=== PATIENT | male | born 1995 | race African-American/Black ===

== ENCOUNTER 2019-01-02 11:16 | Inpatient (IN) | payer OTHER ==
[2019-01-02] MEDS ORDERED: MAG HYDROX/AL HYDROX/SIMETH 30 ML UNIT-DOSE CUP PO ONE (11:37)
[2019-01-02] MEDS ORDERED: FAMOTIDINE 20 MG TABLET PO ONE (11:37)
[2019-01-02] MEDS ORDERED: ONDANSETRON *ODT* 4 MG TABLET SL ONE (11:46)
[2019-01-02] MEDS ORDERED: ONDANSETRON *ODT* 4 MG TABLET ONE (11:52)
[2019-01-02] MEDS ORDERED: MAG HYDROX/AL HYDROX/SIMETH 30 ML UNIT-DOSE CUP ONE (11:52)
[2019-01-02] MEDS ORDERED: FAMOTIDINE 20 MG TABLET ONE (11:55)
[2019-01-02 12:09] LABS: BASO % 0.5 % (0-2.0); EOS % 1.8 % (0-4.5); HEMATOCRIT 43.4 % (35.4-49); HEMOGLOBIN 13.9 GM/dL (11.7-16.9); LYMPH % 23.2 % (8-40); MCH 26.2 pg (25.7-33.7); MCHC 32.1 g/dl (32.0-35.9); MEAN CELL VOLUME 81.7 fl (80-96); MONO % 6.4 % (3.8-10.2); NEUT % 68.1 % (42.8-82.8); PLATELET COUNT 373 K/MM3 (134-434); RBC 5.31 M/mm3 (4.00-5.60); WHITE BLOOD COUNT 9.2 K/mm3 (4.0-10.0)
--- NOTE | 2019-01-02 12:12 | PDOC ---
History of Present Illness - General Chief Complaint: Pain, Acute Stated Complaint: ABD PAIN/ VOMTING Time Seen by Provider: 01/02/19 11:33 History Source: Patient Exam Limitations: No Limitations - History of Present Illness Initial Comments: 01/02/19 12:09 CHIEF COMPLAINT: Abdominal pain HISTORY OF PRESENT ILLNESS: This is a 23-year-old male with a history of prediabetes who presents complaining of 2 days of upper abdominal pain. He reports that the pain was gradual in onset, but has since been constant. It is burning in character. It does not seem to be affected by eating. It was unrelieved by 1 dose of Pepto-Bismol. He had 3 episodes of vomiting last night. He has never had pain like this before. He has been having bowel movements, although he reports less volume than normal. He denies any recent travel or known sick contacts. Alcohol: Occasional Smoking: Social Illicits: None PCP: None REVIEW OF SYSTEMS: GENERAL/CONSTITUTIONAL: No fever or chills. No weakness. No weight change. HEAD, EYES, EARS, NOSE AND THROAT: No change in vision. No ear pain or discharge. No sore throat. CARDIOVASCULAR: No chest pain or palpitations. RESPIRATORY: No cough, wheezing, or shortness of breath. GASTROINTESTINAL: See HPI. GENITOURINARY: No dysuria, frequency, or change in urination. MUSCULOSKELETAL: No joint or muscle swelling or pain. No neck or back pain. SKIN: No rash or easy bruising. NEUROLOGIC: No headache, vertigo, loss of consciousness, or loss of sensation. PSYCHIATRIC: No depression or anxiety. ENDOCRINE: No increased thirst. No abnormal weight change. HEMATOLOGIC/LYMPHATIC: No anemia, easy bleeding, or history of blood clots. ALLERGIC/IMMUNOLOGIC: No hives or skin allergy. No latex allergy. PHYSICAL EXAM: GENERAL: The patient is awake, alert, and fully oriented, in no acute distress. HEAD: Normal with no signs of trauma. ENT: Pupils equal, round and reactive to light, extraocular movements intact, sclera anicteric, conjunctiva clear. Neck supple. LUNGS: Clear to auscultation bilaterally. Normal excursion. No respiratory distress or use of accessory muscles. CV: RRR, S1/S2, no MRG. Cap refill < 2 sec. ABDOMEN: Soft, obese, tender to palpation in epigastrium, less so in right upper quadrant. No guarding or rebound tenderness. Bowel sounds normoactive all 4 quadrants. No periumbilical or flank bruising. EXTREMITIES: Normal range of motion, no edema. NEUROLOGICAL: Normal speech, normal gait. CN II-XII grossly intact. PSYCH: Normal mood, normal affect. SKIN: Warm, dry, normal turgor, no rashes or lesions noted. Past History - Past Medical History Allergies/Adverse Reactions: Allergies Allergy/AdvReac Type Severity Reaction Status Date / Time No Known Allergies Allergy Verified 01/02/19 11:20 Home Medications: Ambulatory Orders NK [No Known Home Medication] 01/02/19 COPD: No - Psycho Social/Smoking Cessation Hx Smoking History: Never smoked Have you smoked in the past 12 months: No Information on smoking cessation initiated: No Hx Alcohol Use: No Drug/Substance Use Hx: No *Physical Exam - Vital Signs Last Vital Signs Temp Pulse Resp BP Pulse Ox 98.6 F 84 20 123/64 98 01/02/19 11:18 01/02/19 11:18 01/02/19 11:18 01/02/19 11:18 01/02/19 11:18 ED Treatment Course - LABORATORY CBC & Chemistry Diagram: 01/02/19 11:43 01/02/19 11:43 - Medications Given in the ED: ED Medications Discontinued Medications Generic Name Dose Route Start Last Admin Trade Name Rickq PRN Reason Stop Dose Admin Al Hydroxide/Mg Hydroxide 30 ml 01/02/19 11:37 01/02/19 11:59 Mylanta Oral Suspension - PO 01/02/19 11:38 30 ml ONCE ONE Administration Famotidine 20 mg 01/02/19 11:37 01/02/19 11:59 Pepcid - PO 01/02/19 11:38 20 mg ONCE ONE Administration Ondansetron HCl 4 mg 01/02/19 11:46 01/02/19 11:59 Zofran Odt - SL 01/02/19 11:47 4 mg ONCE ONE Administration Medical Decision Making - Medical Decision Making 01/02/19 12:11 A/P: 23-year-old male with epigastric pain. Differential includes but is not limited to: Gastritis, viral gastroenteritis, less likely pancreatitis or cholecystitis based on exam. -Labs including CBC, CMP, lipase -Trial of p.o. Pepcid, Zofran, Maalox -Reevaluate 01/02/19 12:42 Lipase 1225 noted. Will send for gallbladder ultrasound. Patient made NPO. Pain reassessed and not improved. Will give hydromorphone 0.5 mg IVP. Lactated Ringer's 1 L bolus ordered. 01/02/19 14:46 Patient re-assessed; states pain has not really improved, but wants to defer further analgesia. U/s reviewed and negative for gallstones/cholecystitis. CT deferred at this time as patient is not septic/ill-appearing. Will admit for further management of pancreatitis. Discharge - Discharge Information Problems reviewed: Yes Clinical Impression/Diagnosis: Acute pancreatitis Condition: Stable - Admission Yes - Follow up/Referral - Patient Discharge Instructions - Post Discharge Activity
[2019-01-02 12:36] LABS: BILIRUBIN,TOTAL 0.2 mg/dL (0.2-1); BLOOD UREA NITROGEN 10.8 mg/dL (7-18); CALCIUM 9.5 mg/dL (8.5-10.1); CREATININE 0.9 mg/dL (0.55-1.3); POTASSIUM 4.5 mmol/L (3.5-5.1)
[2019-01-02] MEDS ORDERED: HYDROmorphone HCL CARPU-JECT 2 MG/1 ML DISP.SYRIN IVPUSH ONE (12:39)
[2019-01-02] MEDS ORDERED: SODIUM CHLORIDE 1,000 ML IV STA (12:40)
[2019-01-02] MEDS ORDERED: LACTATED RINGERS SOLUTION 1000 ML INFUS.BAG IV ONE (12:41)
[2019-01-02] MEDS ORDERED: HYDROmorphone HCl 2 MG/ML VIAL ONE (12:45)
[2019-01-02] MEDS ORDERED: LACTATED RINGERS SOLUTION 1,000 ML/1,000 ML INFUS.BAG IV SCH (14:45)
[2019-01-02] MEDS ORDERED: ENOXAPARIN NA (PORCINE) 40 MG/0.4 ML DISP.SYRIN SQ ONE (17:00)
[2019-01-02] MEDS ORDERED: ACETAMINOPHEN INJECTION 100 ML IVPB ONE (17:09)
[2019-01-02] MEDS: ENOXAPARIN NA (PORCINE) 40 MG/0.4 ML DISP.SYRIN SQ SCH (17:14)
[2019-01-02] MEDS: ACETAMINOPHEN 1000 MG/100 ML VIAL (NON FORMULARY) IVPB PRN ×2 (17:14→23:54)
[2019-01-02 18:24] LABS: CHOLESTEROL 157 mg/dL (50-200); HDL CHOLESTEROL 42 mg/dL (40-60); LDL CHOLESTEROL (ONLY SJRH) 102 mg/dL (5-100); TRIGLYCERIDES 83 mg/dL (0-150)
[2019-01-02] MEDS: SODIUM CHLORIDE 1,000 ML IV SCH ×2 (18:38→20:30)
--- NOTE | 2019-01-02 18:51 | HP ---
CHIEF COMPLAINT: Abdominal Pain PCP: None HISTORY OF PRESENT ILLNESS: 23 M with no significant PMH who presents with 3 days of abdominal pain in the epigastric region that radiates to the right upper quadrant. Pain worsens with movement and exertion. Patient has found no relief with antacids, peptobismol, avoiding food, and rest. Had one episode of nonbloody, non bilious vomiting the day before admission, and one episode of diarrhea the night before admission. Patient had regular bowel movement the morning of admission. Patient denies any nausea, anorexia, hematochezia. No change in diet, and admits to having a fatty and oily diet. No one at home is having similar symptoms. Patient did not have fever, chills, or recent illnesses. ER course was notable for: (1)0.5 mg of dilaudid was given, Patient was given bolus of LR (2)Lipase was 1225 (3)Right U/S was completed: No gallstones, no fluid seen. Recent Travel: Denies PAST MEDICAL HISTORY: Denies Family Medical History: Father's side has HTN, nothing on Mother's side. PAST SURGICAL HISTORY: Denies Social History: Smoking: Occasional cigarettes. Alcohol: Occasional drink, < 1 time a month Drugs: Marijuana twice a week for 1 year Allergies No Known Allergies Allergy (Verified 01/02/19 11:20) HOME MEDICATIONS: Home Medications Medication Instructions Recorded NK [No Known Home Medication] 01/02/19 REVIEW OF SYSTEMS CONSTITUTIONAL: Increase in weight over past year, unable to quantify Absent: fever, chills, diaphoresis, generalized weakness, malaise, loss of appetite, HEENT: Absent: eye pain, visual changes CARDIOVASCULAR: Absent: chest pain, peripheral edema RESPIRATORY: Absent: shortness of breath, dyspnea with exertion, GASTROINTESTINAL: abdominal pain Absent: abdominal distension, nausea, vomiting, diarrhea, constipation, melena , hematochezia GENITOURINARY: Absent: dysuria, frequency, urgency, hesitancy, hematuria MUSCULOSKELETAL: back pain for the past week Absent: myalgia, arthralgia, joint swelling, neck pain HEMATOLOGIC/IMMUNOLOGIC: Absent: easy bleeding, easy bruising, lymphadenopathy, frequent infections ENDOCRINE: Absent: heat intolerance, cold intolerance NEUROLOGIC: Absent: headache, focal weakness or paresthesias, dizziness, unsteady gait, seizure, mental status changes, bladder or bowel incontinence PSYCHIATRIC: Absent: anxiety, depression, suicidal or homicidal ideation, hallucinations. PHYSICAL EXAMINATION Vital Signs - 24 hr 01/02/19 01/02/19 01/02/19 11:18 17:01 18:20 Temperature 98.6 F 98.5 F 98.6 F Pulse Rate 84 77 Pulse Rate [ 88 Right Radial] Respiratory 20 19 18 Rate Blood Pressure 123/64 132/62 Blood Pressure 126/78 [Left Arm] O2 Sat by Pulse 98 100 Oximetry (%) 01/02/19 18:32 Temperature Pulse Rate Pulse Rate [ Right Radial] Respiratory Rate Blood Pressure Blood Pressure [Left Arm] O2 Sat by Pulse 96 Oximetry (%) GENERAL: Awake, alert, and fully oriented, in no acute distress. HEAD: Normal with no signs of trauma. EYES: Pupils equal, round and reactive to light, extraocular movements intact, sclera anicteric, conjunctiva clear. EARS, NOSE, THROAT: Ears normal, nares patent, oropharynx clear without exudates. Moist mucous membranes. LUNGS: Breath sounds difficult to appreciate. Equal, air entry bilaterally HEART: Regular rate and rhythm, normal S1 and S2 without murmur, rub or gallop. ABDOMEN:Tender in the RUQ, positive cohen sign, no rebound tenderness. Normoactive bowel sounds. MUSCULOSKELETAL: Normal range of motion at all joints. No bony deformities or tenderness. UPPER EXTREMITIES: 2+ pulses, warm, well-perfused. No cyanosis. No clubbing. No peripheral edema. LOWER EXTREMITIES: 2+ pulses, warm, well-perfused. No calf tenderness. No peripheral edema. NEUROLOGICAL: Cranial nerves II-XII intact. Normal speech. Laboratory Results - last 24 hr 01/02/19 01/02/19 01/02/19 11:43 11:43 11:43 WBC 9.2 RBC 5.31 Hgb 13.9 Hct 43.4 MCV 81.7 MCH 26.2 MCHC 32.1 RDW 14.0 Plt Count 373 MPV 8.0 Absolute Neuts (auto) 6.2 Neutrophils % 68.1 Lymphocytes % 23.2 Monocytes % 6.4 Eosinophils % 1.8 Basophils % 0.5 Nucleated RBC % 0 Sodium 134 L Potassium 4.5 Chloride 100 Carbon Dioxide 29 Anion Gap 5 L BUN 10.8 Creatinine 0.9 Est GFR (CKD-EPI)AfAm 140.02 Est GFR (CKD-EPI)NonAf 120.81 Random Glucose 156 H Calcium 9.5 Total Bilirubin 0.2 AST 18 ALT 29 Alkaline Phosphatase 60 Total Protein 8.0 Albumin 4.0 Triglycerides Cholesterol Total LDL Cholesterol HDL Cholesterol Lipase 1225 H 01/02/19 01/02/19 16:57 17:00 WBC RBC Hgb Hct MCV MCH MCHC RDW Plt Count MPV Absolute Neuts (auto) Neutrophils % Lymphocytes % Monocytes % Eosinophils % Basophils % Nucleated RBC % Sodium Potassium Chloride Carbon Dioxide Anion Gap BUN Creatinine Est GFR (CKD-EPI)AfAm Est GFR (CKD-EPI)NonAf Random Glucose Calcium Total Bilirubin AST ALT Alkaline Phosphatase Total Protein Albumin Triglycerides Cancelled 83 Cholesterol Cancelled 157 Total LDL Cholesterol Cancelled 102 H HDL Cholesterol Cancelled 42 Lipase ASSESSMENT/PLAN: 23M without significant PMH who presents with pancreatitis 1)Pancreatitis -Patient says he is prediabetic as per labs his mom sent off from her medical office job. May be due to marijuana use. Unlikely to be due to alcohol intake, may be due to triglycerides as patient has BMI of 54. -NPO, will adjust diet in the morning -NS @ 125 ml/hr -Protonix 40 mg IV Qdaily -Tylenol 1000 mg IV Q8H PRN for pain 1-7 -Morphine 3mg Q4H PRN for pain 7-10 -F/U Lipid Panel -F/U HbA1c -patient will have MRCP as outpatient pending testing in hospital DVT: Lovenox 40 mg SQ Daily F: NS @125 ml/hr E: Monitor BMP N: NPO Visit type - Emergency Visit Emergency Visit: Yes ED Registration Date: 01/02/19 Care time: The patient presented to the Emergency Department on the above date and was hospitalized for further evaluation of their emergent condition. - New Patient This patient is new to me today: Yes Date on this admission: 01/02/19 - Critical Care Critical Care patient: No ATTENDING PHYSICIAN STATEMENT I saw and evaluated the patient. I reviewed the resident's note and discussed the case with the resident. I agree with the resident's findings and plan as documented. SUBJECTIVE: OBJECTIVE: ASSESSMENT AND PLAN:
--- NOTE | 2019-01-02 19:40 | PN ---
Teaching Attending Note Name of Resident: Hussein Mayfield ATTENDING PHYSICIAN STATEMENT I saw and evaluated the patient. I reviewed the resident's note and discussed the case with the resident. I agree with the resident's findings and plan as documented. SUBJECTIVE: CC: abd pain HPI : patietn developed abd pain suddelnly. had one episode of vomiting at home. took laxatives today and developed diarrhea. no hematochezia. no alcohol or drugs but smoked marijuana and quit 2 weeks ago. no diuretic use. snores at night OBJECTIVE: NAD, AAOx3. HEENT: MMM, no facial droop, EOMI, round equal pupils, reactive to light . No LAP inneck CV: RRR Lunsg: CATB Ext : No edema or erythema Abd: soft,ND, TTP in spigastric and RUQ. nl BS . neg [facility] Neuro: no facial droop, EOMI, round equal pupils, reactive to light. strength 5/ 5 in upper and lower extremities proximally and distally ASSESSMENT AND PLAN: 23 y/o man with h/o prediabetes who presented with abd paina dn was found to have acute pancreatitis 1- Acute pancreatitis : could be due to Marijuana use. no alcoho, gall stones. Nl TG. no diuretics use. - IVF - pain control - NPO for now - clears in am . - check A1c - might need an out pt MRCP to evaluate pancreas 2-Obesity : counseled . weight loss, and sleep study recommended DVT PX : lovenox
[2019-01-02] MEDS: morphine SULFATE 4 MG/ML VIAL IVPUSH PRN (20:30)
[2019-01-03] MEDS: morphine SULFATE 4 MG/ML VIAL IVPUSH PRN ×2 (03:35→21:31)
[2019-01-03] MEDS: SODIUM CHLORIDE 1,000 ML IV SCH ×3 (05:52→23:59)
[2019-01-03 08:32] LABS: BASO % 0.3 % (0-2.0); HEMATOCRIT 38.9 % (35.4-49); HEMOGLOBIN 12.7 GM/dL (11.7-16.9); LYMPH % 28.6 % (8-40); MCH 26.4 pg (25.7-33.7); MCHC 32.6 g/dl (32.0-35.9); MEAN CELL VOLUME 81.1 fl (80-96); MEAN PLT VOLUME 7.9 fl (7.5-11.1); MONO % 7.9 % (3.8-10.2); NEUT % 61.2 % (42.8-82.8); PLATELET COUNT 330 K/MM3 (134-434); RDW 14.1 % (11.9-15.9); WHITE BLOOD COUNT 6.5 K/mm3 (4.0-10.0)
[2019-01-03] MEDS: ACETAMINOPHEN 1000 MG/100 ML VIAL (NON FORMULARY) IVPB PRN ×2 (08:53→17:57)
[2019-01-03 08:55] LABS: ALBUMIN 3.6 g/dl (3.4-5.0); BILIRUBIN,TOTAL 0.5 mg/dL (0.2-1); BLOOD UREA NITROGEN 10.1 mg/dL (7-18); CALCIUM 8.9 mg/dL (8.5-10.1); CREATININE 0.8 mg/dL (0.55-1.3); POTASSIUM 4.1 mmol/L (3.5-5.1); TOT PROT 6.8 g/dl (6.4-8.2)
[2019-01-03] MEDS: PANTOPRAZOLE SODIUM 40 MG VIAL IVPUSH SCH (09:00)
[2019-01-03] MEDS: ENOXAPARIN NA (PORCINE) 40 MG/0.4 ML DISP.SYRIN SQ SCH (09:00)
--- NOTE | 2019-01-03 14:37 | PN ---
Physical Exam: SUBJECTIVE: Patient seen and examined in the morning. No acute events overnight. Abdominal pain persists. No complaints of shortness of breath, chest pain, nausea, vomiting, diarrhea. OBJECTIVE: Vital Signs Period Temp Pulse Resp BP Sys/Mathew Pulse Ox Last 24 Hr 97.6 F-98.7 F 77-88 17-20 120-161/51-80 96-100 GENERAL: Awake, alert, and fully oriented, in no acute distress. HEAD: Normal with no signs of trauma. EYES: Pupils equal, round and reactive to light, extraocular movements intact, sclera anicteric, conjunctiva clear. EARS, NOSE, THROAT: Ears normal, nares patent, oropharynx clear without exudates. Moist mucous membranes. LUNGS: Breath sounds difficult to appreciate. Equal, air entry bilaterally HEART: Regular rate and rhythm, normal S1 and S2 without murmur, rub or gallop. ABDOMEN:Tender in the RUQ, no rebound tenderness. Normoactive bowel sounds. MUSCULOSKELETAL: Normal range of motion at all joints. No bony deformities or tenderness. UPPER EXTREMITIES: 2+ pulses, warm, well-perfused. No cyanosis. No clubbing. No peripheral edema. LOWER EXTREMITIES: 2+ pulses, warm, well-perfused. No calf tenderness. No peripheral edema. NEUROLOGICAL: Cranial nerves II-XII intact. Normal speech. Laboratory Results - last 24 hr CBC, BMP 01/03/19 07:35 01/03/19 07:35 Active Medications Generic Name Dose Route Start Last Admin Trade Name Freq PRN Reason Stop Dose Admin Acetaminophen 1,000 mg 01/02/19 16:05 01/03/19 08:53 Ofirmev Injection - IVPB 1,000 mg Q8H PRN Administration Pain 1-7 Enoxaparin Sodium 40 mg 01/02/19 16:15 01/03/19 09:00 Lovenox - SQ 40 mg DAILY PATRICIA Administration Sodium Chloride 1,000 mls @ 125 mls/hr 01/02/19 16:00 01/03/19 05:52 Normal Saline - IV 125 mls/hr ASDIR PATRICIA Administration Morphine Sulfate 3 mg 01/02/19 15:56 01/03/19 03:35 Morphine Sulfate IVPUSH 3 mg Q4H PRN Administration Pain Level 8 - 10 Pantoprazole Sodium 40 mg 01/03/19 10:00 01/03/19 09:00 Protonix Iv IVPUSH 40 mg DAILY PATRICIA Administration ASSESSMENT/PLAN: 23M without significant PMH who presents with pancreatitis 1)Pancreatitis -Patient says he is prediabetic as per labs his mom sent off from her medical office job. May be due to marijuana use. Unlikely to be due to alcohol intake, may be due to triglycerides as patient has BMI of 54. -Clear liquids diet, will adjust diet as abdominal pain progresses. -NS @ 125 ml/hr -Protonix 40 mg IV Qdaily -Tylenol 1000 mg IV Q8H PRN for pain 1-7 -Morphine 3mg Q4H PRN for pain 7-10 -F/U Lipid Panel -F/U HbA1c -patient will have MRCP as outpatient pending testing in hospital 2) Diabetes -Hba1c of 6.7 -Starting metformin ad PCP follow up as outpatient. DVT: Lovenox 40 mg SQ Daily F: NS @125 ml/hr E: Monitor BMP N: NPO Visit type - Emergency Visit Emergency Visit: Yes ED Registration Date: 01/02/19 Care time: The patient presented to the Emergency Department on the above date and was hospitalized for further evaluation of their emergent condition. - New Patient This patient is new to me today: No - Critical Care Critical Care patient: No ATTENDING PHYSICIAN STATEMENT I saw and evaluated the patient. I reviewed the resident's note and discussed the case with the resident. I agree with the resident's findings and plan as documented. SUBJECTIVE: OBJECTIVE: ASSESSMENT AND PLAN:
--- NOTE | 2019-01-03 18:33 | PN ---
Teaching Attending Note Name of Resident: Hussein Mayfield ATTENDING PHYSICIAN STATEMENT I saw and evaluated the patient. I reviewed the resident's note and discussed the case with the resident. I agree with the resident's findings and plan as documented. SUBJECTIVE: Seen at 11 am No fever or chills. Abd pain is better . feels hungry OBJECTIVE: NAD, AAOx3. HEENT: MMM. CV: RRR Lungs: CATB Ext: No edema or erythema Abd: soft,ND, TTP in RUQ. nl BS . Obese ASSESSMENT AND PLAN: 23 y/o man with h/o prediabetes who presented with abd paina dn was found to have acute pancreatitis 1- Acute pancreatitis: could be due to Marijuana use. - cont IVF - clear liquid diet - pain control - might need an out pt MRCP to evaluate pancreas [id number]: will start metformin as out pt Dietitian consult 3- Obesity: dietitian consult. out pt referral for bariatric sx DVT PX : lovenox
[2019-01-04] MEDS: morphine SULFATE 4 MG/ML VIAL IVPUSH PRN ×2 (02:34→06:11)
[2019-01-04] MEDS: SODIUM CHLORIDE 1,000 ML IV SCH (09:03)
[2019-01-04 09:20] LABS: BASO % 0.3 % (0-2.0); EOS % 2.3 % (0-4.5); HEMATOCRIT 40.5 % (35.4-49); HEMOGLOBIN 13.1 GM/dL (11.7-16.9); LYMPH % 27.4 % (8-40); MCH 26.3 pg (25.7-33.7); MCHC 32.4 g/dl (32.0-35.9); MEAN CELL VOLUME 81.2 fl (80-96); MEAN PLT VOLUME 7.8 fl (7.5-11.1); MONO % 7.1 % (3.8-10.2); NEUT % 62.9 % (42.8-82.8); PLATELET COUNT 329 K/MM3 (134-434); RBC 4.99 M/mm3 (4.00-5.60); RDW 13.6 % (11.9-15.9)
[2019-01-04] MEDS: ENOXAPARIN NA (PORCINE) 40 MG/0.4 ML DISP.SYRIN SQ SCH (09:57)
[2019-01-04] MEDS: PANTOPRAZOLE SODIUM 40 MG VIAL IVPUSH SCH (09:57)
[2019-01-04 09:58] LABS: BLOOD UREA NITROGEN 7.8 mg/dL (7-18); CALCIUM 9.6 mg/dL (8.5-10.1); CREATININE 0.8 mg/dL (0.55-1.3)
--- NOTE | 2019-01-04 13:23 | PN ---
Teaching Attending Note Name of Resident: Hussein Mayfield ATTENDING PHYSICIAN STATEMENT I saw and evaluated the patient. I reviewed the resident's note and discussed the case with the resident. I agree with the resident's findings and plan as documented. SUBJECTIVE: No fever or chills. abd pain is better . has no N/V . tolerated clears NAD HEENT: MMM. CV: RRR Lungs: CATB Ext: No edema or erythema Abd: soft, ND, NT. Nl BS. Obese ASSESSMENT AND PLAN: 23 y/o man with h/o prediabetes who presented with abd paina dn was found to have acute pancreatitis 1- Acute pancreatitis: could be due to Marijuana use. -regular diet today. dc IV pain meds - might need an out pt MRCP to evaluate pancreas 2- new onset Diabetes: will start metformin as out pt advised to loose weight and change life style will prescribe glucometer and ask Rn to teach him 3- Obesity: out pt referral for bariatric sx if regular diet is tolerated , then can dc home today
[2019-01-04 14:57] VITALS: BP 120/63; PULSE 99; TEMP 98.6
[2019-01-04 15:44] VITALS: BMI 53.9
--- NOTE | 2019-01-04 17:15 | DS ---
Physical Exam: SUBJECTIVE: Patient seen and examined in the morning. No acute events overnight. No complaints of chest pain,shortness of breath, abdominal pain, nausea, vomiting,diarrhea. OBJECTIVE: Vital Signs Period Temp Pulse Resp BP Sys/Mathew Pulse Ox Last 24 Hr 98.7 F 80-99 20-20 120-152/63-83 98-98 PHYSICAL EXAM GENERAL: Awake, alert, and fully oriented, in no acute distress. HEAD: Normal with no signs of trauma. EYES: Pupils equal, round and reactive to light, extraocular movements intact, sclera anicteric, conjunctiva clear. EARS, NOSE, THROAT: Ears normal, nares patent, oropharynx clear without exudates. Moist mucous membranes. LUNGS: Breath sounds difficult to appreciate. Equal, air entry bilaterally HEART: Regular rate and rhythm, normal S1 and S2 without murmur, rub or gallop. ABDOMEN: Non tender in all 4 quadrants, no rebound tenderness. Normoactive bowel sounds. MUSCULOSKELETAL: Normal range of motion at all joints. No bony deformities or tenderness. UPPER EXTREMITIES: 2+ pulses, warm, well-perfused. No cyanosis. No clubbing. No peripheral edema. LOWER EXTREMITIES: 2+ pulses, warm, well-perfused. No calf tenderness. No peripheral edema. NEUROLOGICAL: Cranial nerves II-XII intact. Normal speech. LABS Laboratory Results - last 24 hr 01/04/19 01/04/19 01/04/19 08:45 08:45 15:11 WBC 7.0 RBC 4.99 Hgb 13.1 Hct 40.5 MCV 81.2 MCH 26.3 MCHC 32.4 RDW 13.6 Plt Count 329 MPV 7.8 Absolute Neuts (auto) 4.4 Neutrophils % 62.9 Lymphocytes % 27.4 Monocytes % 7.1 Eosinophils % 2.3 Basophils % 0.3 Nucleated RBC % 0 Sodium 136 Potassium 4.0 Chloride 104 Carbon Dioxide 26 Anion Gap 6 L BUN 7.8 Creatinine 0.8 Est GFR (CKD-EPI)AfAm 146.96 Est GFR (CKD-EPI)NonAf 126.80 POC Glucometer 114 Random Glucose 184 H Calcium 9.6 HOSPITAL COURSE: Date of Admission:01/02/19 Date of Discharge: 01/04/19 23M with no significant PMH who presented with acute pancreatitis. Patient was made NPO the night of admission, and given IV fluids, Morphine 3 mg IV PRN, and 1000 mg Tylenol IV Q8H PRN. Patient was able to tolerate liquid diet during the second day of admission, and diet was advanced accordingly. On final day of admission patient was tolerating regular foods and was ruled stable for discharge. During stay in hospital patient's Hba1c was 6.7%. Patient counseled on lifestyle changes including diet and exercise, and was started on Metformin XL 500 mg PO Daily. Patient was also started on Atorvastatin 10 mg PO, due to elevation of LDL and new diagnosis of DM. Patient will follow up with Dr. Donovan for bariatric surgery counseling, and was given referral for Primary Care. Was prescribed glucometer to measure blood sugars at home. Imaging done this stay: RUQ ultrasound: Hepatomegaly with fatty infiltration vs hepatocellular disease. No gallstones or sonographic evidence of cholecystic disease. No gross free fluid in abdomen. Minutes to complete discharge: 35 Discharge Summary Problems reviewed: Yes Reason For Visit: ACUTE PANCREATITIS Condition: Improved - Instructions Diet, Activity, Other Instructions: You were admitted to the hospital because of pancreatitis. We treated you with IV fluids and pain medicine while you were here, and you are now stable for discharge. While you were here we did blood work and saw that you have Diabetes. Your HbA1c (a measure of your diabetes is 6.7%). You need to start treatment for this condition. For your diabetes please take: Metformin 500 mg, by mouth, daily. Please measure your blood sugars daily in am with the glucometer we are prescribing you for the next week Your blood work also showed that you have high cholesterol. Please take: Atorvastatin 10 mg, by mouth, nightly. Please take adjust your diet according to the advice you were given by the automation and control engineer in the hospital. Follow up with a primary care doctor within a week. Please bring a record of the blood sugar measurements from the glucometer. Follow up with Dr. Donovan for bariatric surgery. Return to the Emergency Department if you have abdominal pain, chest pain, shortness of breath, nausea, vomiting, diarrhea, or worsening of your symptoms. please do not use Marijuana Referrals: [facility] [place] [Provider Group] Nader Donovan MD [Staff Physician] - Disposition: HOME - Home Medications Comprehensive Discharge Medication List: Ambulatory Orders Atorvastatin Ca [Lipitor] 10 mg PO HS #30 tablet 01/04/19 Lancets [Lancets Thin] 1 each MC DAILY #90 each 01/04/19 Miscellaneous Medical Supply [Glucometer Device] 1 each .ROUTE ASDIR #1 kit Miscellaneous Medical Supply [Glucometer Test Strips #50] 1 each .ROUTE ASDIR # 1 box 01/04/19 metFORMIN HCL [Metformin HCl] 500 mg PO DAILY #30 tablet 01/04/19 metFORMIN XR [Glucophage Xr -] 500 mg PO DAILY@0700 #30 tab.sr.24h 01/04/19 This patient is new to me today: No Emergency Visit: Yes ED Registration Date: 01/02/19 Care time: The patient presented to the Emergency Department on the above date and was hospitalized for further evaluation of their emergent condition. Critical Care patient: No - Discharge Referral Referred to [facility] No ATTENDING PHYSICIAN STATEMENT I saw and evaluated the patient. I reviewed the resident's note and discussed the case with the resident. I agree with the resident's findings and plan as documented. SUBJECTIVE: OBJECTIVE: ASSESSMENT AND PLAN:
--- NOTE | 2019-01-05 20:30 | EKG ---
Test Reason : Blood Pressure : / mmHG Vent. Rate : 089 BPM Atrial Rate : 089 BPM P-R Int : 170 ms QRS Dur : 094 ms QT Int : 362 ms P-R-T Axes : 047 058 033 degrees QTc Int : 440 ms SINUS RHYTHM WITH OCCASIONAL PREMATURE VENTRICULAR COMPLEXES NONSPECIFIC T WAVE ABNORMALITY ABNORMAL ECG NO PREVIOUS ECGS AVAILABLE Confirmed by KEIRA PEDERSON MD ([id number]) on 01/05/2019 8:29:48 PM Referred By: Confirmed By:KEIRA PEDERSON MD
== END 2019-01-04 18:00 | disposition home or self-care (01) | DRG 282 ==
LOC: JER 11:16 → JERBED 15:06 → J6S 18:02
PROVIDERS: ADMIT Internal Medicine; ATTEND Internal Medicine
DX: K85.90 Acute pancreatitis without necrosis or infection, unspecified (principal); E11.9 Type 2 diabetes mellitus without complications; E66.9 Obesity, unspecified; Z68.43 Body mass index [BMI] 50.0-59.9, adult; E78.5 Hyperlipidemia, unspecified; R16.0 Hepatomegaly, not elsewhere classified; F12.90 Cannabis use, unspecified, uncomplicated; K76.0 Fatty (change of) liver, not elsewhere classified
CPT/HCPCS: 36415; 76705-TC; 80048; 80053; 80061; 82962; 83036; 83690; 83721; 85025; 93005; 93010; 99284-25; J0131; J7030; Q0162

== ENCOUNTER 2019-08-20 14:44 | Emergency (ER) | payer OTHER ==
[2019-08-20] MEDS ORDERED: SODIUM CHLORIDE 1,000 ML IV STA (14:54)
[2019-08-20] MEDS ORDERED: ONDANSETRON 4 MG/2 ML VIAL IVPUSH ONE (14:54)
[2019-08-20 14:55] VITALS: BMI 56.7
--- NOTE | 2019-08-20 14:55 | PDOC ---
Rapid Medical Evaluation Time Seen by Provider: 08/20/19 14:49 Medical Evaluation: Allergies Allergy/AdvReac Type Severity Reaction Status Date / Time No Known Allergies Allergy Verified 08/20/19 14:48 08/20/19 14:50 Pt with LESLYEM, presents to the ER with n/v/d for two days. States he has not been taking his medication frequently. Admits to increased urination. Exam: epigastric discomfort Orders: labs, IV, meds Pt to proceed to the ER for further evaluation Discharge Disposition - Diagnosis Vomiting Qualifiers: Vomiting type: unspecified Vomiting Intractability: unspecified Nausea presence: with nausea Qualified Code(s): R11.2 - Nausea with vomiting, unspecified - Referrals - Patient Instructions - Post Discharge Activity
--- NOTE | 2019-08-20 15:49 | PDOC ---
Documentation entered by Shelly Goldstein SCRIBE, acting as scribe for Lisandro Mccain MD. Lisandro Mccain MD: This documentation has been prepared by the ana mariaeAngelita Sydney, SCRIBE, under my direction and personally reviewed by me in its entirety. I confirm that the documentation accurately reflects all work, treatment, procedures, and medical decision making performed by me. Attending Attestation - Resident Resident Name: Sven Eller - ED Attending Attestation I have performed the following: I have examined & evaluated the patient, The case was reviewed & discussed with the resident, I agree w/resident's findings & plan, Exceptions are as noted - HPI HPI: 08/20/19 15:40 Patient is a 23 year old male with a significant past medical history of NIDDM (non-compliant with medication) who presents to the ED with three days of nausea, vomiting, and diarrhea. Patient was also concerned for high blood sugar, prompting his arrival to the ED. The patient denies chest pain, shortness of breath, headache and dizziness, fever, chills. Denies dysuria, frequency, urgency and hematuria. Allergies: NKA PCP: None - Physicial Exam PE: 08/20/19 15:46 EXAMINATION CONSTITUTIONAL:AOx3, morbidly obesse; in no apparent distress HEAD: Normocephalic; atraumatic EYES: PERRL; EOM intact ENMT: External appears normal; mm-dry NECK: Supple; non-tender; no cervical lymphadenopathy CARD: Normal S1, S2; no murmurs, rubs, or gallops RESP: Normal chest excursion with respiration; breath sounds clear and equal bilaterally; no wheezes, rhonchi, or rales ABD: Soft, non-distended; non-tender; no palpable organomegaly, no palpable hernias EXT: Normal ROM in all four extremities; non-tender to palpation; distal pulses intact SKIN: Warm, dry, no rash NEURO: No focal neurological deficiencies. - Medical Decision Making 08/20/19 15:47 Patient is a morbidly obese 23-year-old male with history of diabetes and hypertension (noncompliant with his medication regimen who presents with persistent nausea, nonbloody nonbilious vomiting and diarrhea. In the ER, patient was noted to be tachycardic and hypertensive with dry mucous membranes. Abdomen is soft and nontender and there are no focal neurological deficits. Will hydrate, will administer antiemetics. Will reassess. Likely discharge with hypoglycemics and antihypertensives with outpatient follow-up. Discharge - Discharge Information Problems reviewed: Yes Clinical Impression/Diagnosis: Vomiting Qualifiers: Vomiting type: unspecified Vomiting Intractability: unspecified Nausea presence: with nausea Qualified Code(s): R11.2 - Nausea with vomiting, unspecified - Follow up/Referral - Patient Discharge Instructions - Post Discharge Activity
--- NOTE | 2019-08-20 15:53 | PDOC ---
History of Present Illness - General Chief Complaint: Nausea/Vomiting Stated Complaint: VOMITING Time Seen by Provider: 08/20/19 14:49 History Source: Patient Exam Limitations: No Limitations - History of Present Illness Initial Comments: 08/20/19 15:38 Sterling Serna is a 23M with PMH pancreatitis and poorly controlled NIDDM presenting with 3 days of nausea and vomiting. Has had multiple episodes of nausea and vomiting over the last 3 days without fever, chills, abdominal pain, chest pain, SOB. Poor PO intake. Denies sick contacts or spoiled food, no covid-19 exposures. Last year was diagnosed with T2DM in the setting of pancreatitis at [facility] last year, discharged home with metformin and HCTZ but was non-compliant with medications. Does not take any medications. NKDA No PSH Denies alcohol/smoking, smokes marijuana, last time last night, no prior N/V associated with use. Past History - Medical History Allergies/Adverse Reactions: Allergies Allergy/AdvReac Type Severity Reaction Status Date / Time No Known Allergies Allergy Verified 08/20/19 14:48 Home Medications: Ambulatory Orders Atorvastatin Ca [Lipitor] 10 mg PO HS #30 tablet 01/04/19 Lancets [Lancets Thin] 1 each MC DAILY #90 each 01/04/19 Miscellaneous Medical Supply [Glucometer Device] 1 each .ROUTE ASDIR #1 kit 01/04/19 Miscellaneous Medical Supply [Glucometer Test Strips #50] 1 each .ROUTE ASDIR #1 box 01/04/19 metFORMIN HCL [Metformin HCl] 500 mg PO DAILY #30 tablet 01/04/19 metFORMIN XR [Glucophage Xr -] 500 mg PO DAILY@0700 #30 tab.sr.24h 01/04/19 Hydrochlorothiazide [Hctz -] 25 mg PO DAILY #30 tablet 08/20/19 metFORMIN HCL [Metformin HCl] 500 mg PO DAILY 30 Days #30 tablet 08/20/19 COPD: No Diabetes: Yes - Immunization History Immunization Up to Date: No - Psycho-Social/Smoking History Smoking History: Never smoked Have you smoked in the past 12 months: Yes - Substance Abuse Hx (Audit-C & DAST Scrn) How often the patient has a drink containing alcohol: Never Score: In Men: 4 or > Positive; In Women: 3 or > Positive: 0 Screen Result (Pos requires Nsg. Audit-10AR): Negative In the last yr the pt used illegal drug/Rx for NonMed reason: Yes Score: Yes response is considered Positive: 1 Screen Result (Positive result requires Nsg. DAST-10): Positive Review of Systems - Review of Systems Able to Perform ROS?: Yes Constitutional: Yes: Loss of Appetite. No: Chills, Fever, Weakness HEENTM: No: Eye Pain, Blurred Vision, Double Vision Respiratory: No: Cough, Shortness of Breath, Wheezing Cardiac (ROS): No: Chest Pain, Irregular Heart Rate, Palpitations, Syncope ABD/GI: Yes: Diarrhea, Nausea, Poor Appetite, Poor Fluid Intake, Vomiting. No: Constipated : No: Symptoms Reported Musculoskeletal: No: Symptoms Reported Integumentary: No: Symptoms Reported Neurological: No: Headache, Numbness, Paresthesia, Unsteady Gait Endocrine: No: Symptoms Reported Hematologic/Lymphatic: No: Symptoms Reported All Other Systems: Reviewed and Negative *Physical Exam - Vital Signs Last Vital Signs Temp Pulse Resp BP Pulse Ox 110 H 18 176/90 H 100 08/20/19 14:49 08/20/19 14:49 08/20/19 14:49 08/20/19 14:49 - Physical Exam General Appearance: Yes: Nourished, Appropriately Dressed, Obese. No: Apparent Distress HEENT: positive: EOMI, ANISHA, Normal Voice, Symmetrical, Pharynx Normal, Hearing Grossly Normal. negative: Scleral Icterus (R), Scleral Icterus (L) Neck: positive: Trachea midline, Normal Thyroid, Supple. negative: Tender, Rigid, Lymphadenopathy (R), Lymphadenopathy (L) Respiratory/Chest: positive: Lungs Clear, Normal Breath Sounds. negative: Chest Tender, Respiratory Distress, Accessory Muscle Use, Crackles, Rales, Rhonchi, Stridor, Wheezing Cardiovascular: positive: Regular Rhythm, Regular Rate. negative: Murmur Gastrointestinal/Abdominal: positive: Normal Bowel Sounds, Flat, Soft. negative: Tender, Organomegaly, Pulsatile Mass, Distended, Guarding Musculoskeletal: positive: Normal Inspection. negative: CVA Tenderness Extremity: positive: Normal Capillary Refill, Normal Inspection, Normal Range of Motion, Pelvis Stable. negative: Tender, Pedal Edema, Swelling Integumentary: positive: Normal Color, Dry, Warm. 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 negative: Facial Droop, Numbness, Finger to Nose ED Treatment Course - LABORATORY CBC & Chemistry Diagram: 08/20/19 15:20 08/20/19 15:20 Medical Decision Making - Medical Decision Making 08/20/19 15:58 Patient is a 23M with PMH pancreatitis, poorly controlled and unmedicated NIDDM and HTN presenting with N/V for 3 days without fever or abd pain. Concerned for DKA vs. HSS given history, less concerned for pancreatitis given lack of abd pain, also considering gastroenteritis. Getting CBC, CMP, lipase, beta-hydroxybutyrate, BGM, VBG for eval DM complications, IVF and Zofran for nausea and dehydration. Labs notable for: - no AGAP - BGM 276 - UA contaminated, has ketones - lipase WNL - glucose 286 Patient does not have DKA or HHS, feels better after IVF and Zofran. Likely gastroenteritis. Will PO challenge and [place] [facility] [place] metformin and HCTZ. 08/20/19 17:04 PO challenge successful, patient feeling better and visibly appears improved, VSS, can safely discharge with PMD appt and meds. Discharge - Discharge Information Problems reviewed: Yes Clinical Impression/Diagnosis: Vomiting Qualifiers: Vomiting type: unspecified Vomiting Intractability: unspecified Nausea presence: with nausea Qualified Code(s): R11.2 - Nausea with vomiting, unspecified Diarrhea Qualifiers: Diarrhea type: unspecified type Qualified Code(s): R19.7 - Diarrhea, unspecified Condition: Improved Disposition: HOME - Additional Discharge Information Prescriptions: Hydrochlorothiazide [Hctz -] 25 mg PO DAILY #30 tablet metFORMIN HCL [Metformin HCl] 500 mg PO DAILY 30 Days #30 tablet - Follow up/Referral Referrals: Willy Russo MD [Primary Care Provider] - [facility] [place] [facility] [place] Group] - Patient Discharge Instructions Patient Printed Discharge Instructions: DI for Diabetes Type 2, DI for Vomiting -- Adult Additional Instructions: Today you were evaluated for nausea and vomiting. You felt better after we gave you IV fluids and some nausea medicine. Your symptoms are probably being caused by a stomach virus and will improve over time, please try to keep drinking enough fluids to stay hydrated. You need to follow-up with a primary care doctor for further care of your high blood pressure and diabetes. We have sent a prescription for metformin for diabetes and HCTZ for blood pressure, and you sh ould take these as prescribed each day. If you have any other new or concerning symptoms, please return to the emergency room. - Post Discharge Activity
[2019-08-20 15:54] LABS: VENOUS BASE EXCESS -2.5 mmol/L (-2-2); VENOUS O2 SATURATION 93.9 % (70-80); VENOUS PCO2 37.6 mmHg (38-52); VENOUS PH 7.386 (7.310-7.410)
[2019-08-20 15:55] LABS: BASO % 0.2 % (0-2.0); EOS % 0.5 % (0-4.5); HEMATOCRIT 44.5 % (35.4-49); HEMOGLOBIN 14.3 GM/dL (11.7-16.9); LYMPH % 5.6 % (8-40); MCH 26.4 pg (25.7-33.7); MCHC 32.2 g/dl (32.0-35.9); MEAN CELL VOLUME 81.9 fl (80-96); MEAN PLT VOLUME 9.1 fl (7.5-11.1); NEUT % 87.7 % (42.8-82.8); PLATELET COUNT 352 K/MM3 (134-434); RBC 5.44 M/mm3 (4.00-5.60); RDW 14.1 % (11.9-15.9); WHITE BLOOD COUNT 11.3 K/mm3 (4.0-10.0)
[2019-08-20 15:56] LABS: PH,URINE 5.5 (5.0-8.0); URINE APPEARANCE CLEAR; URINE BILIRUBIN NEGATIVE (NEGATIVE); URINE COLOR YELLOW; URINE KETONE 40 mg/dl (NEGATIVE); URINE NITRITE NEGATIVE (NEGATIVE); URINE PROTEIN 30 (NEGATIVE); URINE UROBILINOGEN 0.2 mg/dL (0.2-1.0)
[2019-08-20 15:57] LABS: EPI CELLS 13.2 /uL (0-25.1); HYALINE CASTS 3.2 /uL (0-3.1); URINE LEUK ESTERASE NEGATIVE (NEGATIVE); URINE RBC 8.9 /uL (0-23.9); URINE WBC 23.7 /uL (0-25.8)
[2019-08-20 16:01] LABS: INR 0.94 (0.83-1.09); PROTHROMBIN TIME (PATIENT) 11.1 SEC (9.7-13.0)
[2019-08-20 16:22] VITALS: BP 132/92; PULSE 94; TEMP 98.4
[2019-08-20 16:22] LABS: ALBUMIN 4.3 g/dl (3.4-5.0); BILIRUBIN,TOTAL 0.5 mg/dL (0.2-1); BLOOD UREA NITROGEN 10.6 mg/dL (7-18); TOT PROT 8.2 g/dl (6.4-8.2)
--- NOTE | 2019-08-21 14:07 | EKG ---
Test Reason : Blood Pressure : / mmHG Vent. Rate : 090 BPM Atrial Rate : 090 BPM P-R Int : 154 ms QRS Dur : 090 ms QT Int : 366 ms P-R-T Axes : 055 057 016 degrees QTc Int : 447 ms NORMAL SINUS RHYTHM NORMAL ECG WHEN COMPARED WITH ECG OF 02-JAN-2019 15:43, PREMATURE VENTRICULAR COMPLEXES ARE NO LONGER PRESENT Confirmed by GRISEL WITT MD ([id number]) on 08/21/2019 2:07:08 PM Referred By: Confirmed By:GRISEL WITT MD
== END 2019-08-20 17:14 | disposition home or self-care (01) ==
LOC: JER 14:44
PROC: 3E033GC Introduction of Other Therapeutic Substance into Peripheral Vein, Percutaneous Approach (ICD-10-PCS; principal; 2019-08-20)
PROC: 3E0337Z Introduction of Electrolytic and Water Balance Substance into Peripheral Vein, Percutaneous Approach (ICD-10-PCS; principal; 2019-08-20)
DX: R11.2 Nausea with vomiting, unspecified (principal); R19.7 Diarrhea, unspecified
CPT/HCPCS: 36415; 80053; 81003; 82010; 82803; 82962; 83690; 85025; 85610; 87086; 87186; 93005; 93010; 99284-25

== ENCOUNTER 2020-10-02 04:33 | Inpatient (IN) | payer OTHER ==
[2020-10-02] MEDS ORDERED: MAG HYDROX/AL HYDROX/SIMETH 30 ML UNIT-DOSE CUP PO ONE (05:27)
[2020-10-02] MEDS ORDERED: FAMOTIDINE 20 MG/50 ML IVPB 20 MG/50 ML MG IVPB ONE ×2 (05:28→05:36)
[2020-10-02] MEDS ORDERED: MORPHINE SULFATE 2 MG/ML VIAL IVPUSH ONE (05:28)
[2020-10-02] MEDS ORDERED: MORPHINE SULFATE 2 MG/ML VIAL ONE ×3 (05:36→15:42)
[2020-10-02] MEDS ORDERED: MAG HYDROX/AL HYDROX/SIMETH 30 ML UNIT-DOSE CUP ONE (05:36)
[2020-10-02] MEDS ORDERED: SODIUM CHLORIDE 0.9% 500 ML INFUS.BAG IV ONE ×2 (05:43→06:14)
[2020-10-02] MEDS ORDERED: ONDANSETRON 4 MG/2 ML VIAL IVPUSH ONE (06:06)
[2020-10-02] MEDS ORDERED: ACETAMINOPHEN 1000 MG/100 ML VIAL (NON FORMULARY) IVPB ONE (06:14)
[2020-10-02] MEDS ORDERED: ACETAMINOPHEN INJECTION 100 ML IVPB ONE (06:27)
[2020-10-02] MEDS ORDERED: ONDANSETRON 4 MG/2 ML VIAL ONE (06:28)
[2020-10-02 07:55] LABS: VENOUS BASE EXCESS -1.5 mmol/L (-2-2); VENOUS O2 SATURATION 94.3 % (70-80); VENOUS PH 7.399 (7.310-7.410)
[2020-10-02 07:59] LABS: BASO % 0.2 % (0-2.0); EOS % 0.5 % (0-4.5); HEMATOCRIT 40.9 % (35.4-49); HEMOGLOBIN 13.4 GM/dL (11.7-16.9); LYMPH % 19.1 % (8-40); MCH 26.5 pg (25.7-33.7); MCHC 32.8 g/dl (32.0-35.9); MEAN CELL VOLUME 80.8 fl (80-96); MEAN PLT VOLUME 8.8 fl (7.5-11.1); NEUT % 71.2 % (42.8-82.8); PLATELET COUNT 318 10^3/uL (134-434); RBC 5.07 M/mm3 (4.00-5.60); RDW 13.9 % (11.9-15.9); WHITE BLOOD COUNT 8.6 K/mm3 (4.0-10.0)
[2020-10-02 08:19] LABS: BLOOD UREA NITROGEN 12.4 mg/dL (7-18)
[2020-10-02 08:22] LABS: CREATININE 1.1 mg/dL (0.55-1.3)
[2020-10-02 08:22] LABS: CHOLESTEROL 182 mg/dL (50-200); TRIGLYCERIDES 316 mg/dL (0-150)
[2020-10-02 08:23] LABS: BILIRUBIN,TOTAL 0.5 mg/dL (0.2-1); TOT PROT 7.6 g/dl (6.4-8.2)
[2020-10-02 08:24] LABS: LDL CHOLESTEROL (ONLY SJRH) 109 mg/dL (5-100)
[2020-10-02 08:25] LABS: HDL CHOLESTEROL 29 mg/dL (40-60)
[2020-10-02] MEDS ORDERED: morphine CARPU-JECT 2 MG/1 ML DISP.SYRIN IVPUSH ONE ×2 (10:56→15:39)
[2020-10-02] MEDS ORDERED: INSULIN REGULAR HUMAN 100 UNITS/ML *VIAL IVPUSH ONE (14:25)
[2020-10-02] MEDS: SODIUM CHLORIDE 1,000 ML IV SCH (15:35)
[2020-10-02] MEDS ORDERED: INSULIN SLIDING SCALE (NOVOLOG) 1 VIAL SQ SCH (16:30)
[2020-10-02] MEDS ORDERED: morphine SULFATE 4 MG/ML VIAL ONE (20:12)
[2020-10-02] MEDS: morphine SULFATE 4 MG/ML VIAL IVPUSH PRN (20:29)
[2020-10-02] MEDS: FAMOTIDINE 20 MG/50 ML IVPB 20 MG/50 ML MG IVPB SCH (23:36)
[2020-10-03] MEDS: morphine SULFATE 4 MG/ML VIAL IVPUSH PRN ×4 (01:21→21:06)
[2020-10-03] MEDS: ACETAMINOPHEN 325 MG TABLET (FP) PO PRN (04:25)
[2020-10-03] MEDS: SODIUM CHLORIDE 1,000 ML IV SCH (05:42)
[2020-10-03] MEDS: FAMOTIDINE 20 MG/50 ML IVPB 20 MG/50 ML MG IVPB SCH ×2 (09:43→21:25)
[2020-10-03] MEDS ORDERED: INSULIN (LEVEMIR) 100 UNITS/ML UNITS SQ ONE (10:31)
[2020-10-03] MEDS ORDERED: ONDANSETRON 4 MG/2 ML VIAL IVPUSH PRN (11:04)
[2020-10-03] MEDS ORDERED: POLYETHYLENE GLYCOL 3350 119 GM BTL PO SCH (11:15)
[2020-10-03 11:28] LABS: BASO % 0.2 % (0-2.0); EOS % 0.2 % (0-4.5); HEMATOCRIT 40.6 % (35.4-49); HEMOGLOBIN 13.6 GM/dL (11.7-16.9); LYMPH % 9.8 % (8-40); MCH 27.3 pg (25.7-33.7); MCHC 33.5 g/dl (32.0-35.9); MEAN CELL VOLUME 81.5 fl (80-96); MEAN PLT VOLUME 8.3 fl (7.5-11.1); MONO % 9.4 % (3.8-10.2); NEUT % 80.4 % (42.8-82.8); PLATELET COUNT 300 10^3/uL (134-434); RBC 4.98 M/mm3 (4.00-5.60); RDW 13.7 % (11.9-15.9); WHITE BLOOD COUNT 9.2 K/mm3 (4.0-10.0)
[2020-10-03] MEDS: LACTATED RINGERS SOLUTION 1,000 ML/1,000 ML INFUS.BAG IV SCH ×3 (11:29→22:14)
[2020-10-03] MEDS: HYDROCHLOROTHIAZIDE 25 MG TABLET (FP) PO SCH (11:30)
[2020-10-03] MEDS: INSULIN SLIDING SCALE (NOVOLOG) 1 VIAL SQ SCH ×3 (11:37→21:22)
[2020-10-03] MEDS: POLYETHYLENE GLYCOL (HEALTHYLAX) 3350 17 GM PACKET PO SCH ×2 (11:40→21:26)
[2020-10-03 12:01] LABS: BLOOD UREA NITROGEN 4.9 mg/dL (7-18); CALCIUM 8.8 mg/dL (8.5-10.1)
[2020-10-03 12:04] LABS: CREATININE 0.7 mg/dL (0.55-1.3)
[2020-10-03] MEDS ORDERED: ACETAMINOPHEN 1000 MG/100 ML VIAL (NON FORMULARY) IVPB ONE (15:05)
[2020-10-03] MEDS ORDERED: ACETAMINOPHEN INJECTION 100 ML IVPB ONE (15:12)
[2020-10-03] MEDS: ACETAMINOPHEN 1000 MG/100 ML VIAL (NON FORMULARY) IVPB PRN (19:50)
[2020-10-03] MEDS: INSULIN (LEVEMIR) 100 UNITS/ML UNITS SQ SCH (21:21)
[2020-10-03] MEDS: ATORVASTATIN CA 10 MG TABLET (FP) PO SCH (21:26)
[2020-10-04] MEDS: morphine SULFATE 4 MG/ML VIAL IVPUSH PRN ×6 (01:08→21:51)
[2020-10-04] MEDS: LACTATED RINGERS SOLUTION 1,000 ML/1,000 ML INFUS.BAG IV SCH ×2 (03:49→11:31)
[2020-10-04] MEDS: INSULIN SLIDING SCALE (NOVOLOG) 1 VIAL SQ SCH ×5 (06:01→21:53)
[2020-10-04 09:37] LABS: BASO % 0.3 % (0-2.0); EOS % 1.3 % (0-4.5); HEMATOCRIT 41.8 % (35.4-49); LYMPH % 16.5 % (8-40); MCH 27.3 pg (25.7-33.7); MCHC 33.5 g/dl (32.0-35.9); MEAN CELL VOLUME 81.6 fl (80-96); MEAN PLT VOLUME 8.4 fl (7.5-11.1); MONO % 10.8 % (3.8-10.2); NEUT % 71.1 % (42.8-82.8); PLATELET COUNT 311 10^3/uL (134-434); RBC 5.12 M/mm3 (4.00-5.60); RDW 13.5 % (11.9-15.9); WHITE BLOOD COUNT 8.5 K/mm3 (4.0-10.0)
[2020-10-04] MEDS: INSULIN (LEVEMIR) 100 UNITS/ML UNITS SQ SCH ×3 (10:15→21:53)
[2020-10-04] MEDS: POLYETHYLENE GLYCOL (HEALTHYLAX) 3350 17 GM PACKET PO SCH ×2 (10:26→21:51)
[2020-10-04] MEDS: FAMOTIDINE 20 MG/50 ML IVPB 20 MG/50 ML MG IVPB SCH ×2 (10:26→21:53)
[2020-10-04 10:45] LABS: CALCIUM 9.3 mg/dL (8.5-10.1)
[2020-10-04 10:46] LABS: BLOOD UREA NITROGEN 3.9 mg/dL (7-18); MAGNESIUM 1.9 mg/dL (1.8-2.4)
[2020-10-04 10:49] LABS: CREATININE 0.7 mg/dL (0.55-1.3); PHOSPHOROUS 2.7 mg/dL (2.5-4.9)
[2020-10-04] MEDS ORDERED: LISINOPRIL 10 MG TABLET PO SCH (11:30)
[2020-10-04] MEDS: HYDROCHLOROTHIAZIDE 25 MG TABLET (FP) PO SCH (11:37)
[2020-10-04] MEDS: LISINOPRIL 10 MG TABLET PO SCH (14:51)
[2020-10-04] MEDS: SODIUM CHLORIDE 1,000 ML IV SCH (16:14)
[2020-10-04] MEDS: ACETAMINOPHEN 1000 MG/100 ML VIAL (NON FORMULARY) IVPB PRN (16:15)
[2020-10-04] MEDS ORDERED: oxyCODONE HCL 5 MG TABLET PO ONE (16:46)
[2020-10-04] MEDS: ATORVASTATIN CA 10 MG TABLET (FP) PO SCH (21:57)
[2020-10-05] MEDS: SODIUM CHLORIDE 1,000 ML IV SCH ×2 (00:10→07:05)
[2020-10-05] MEDS: ACETAMINOPHEN 325 MG TABLET (FP) PO PRN ×3 (00:14→16:32)
[2020-10-05] MEDS: morphine SULFATE 4 MG/ML VIAL IVPUSH PRN ×2 (01:50→06:06)
[2020-10-05] MEDS: INSULIN SLIDING SCALE (NOVOLOG) 1 VIAL SQ SCH ×3 (06:01→16:47)
[2020-10-05 09:36] LABS: HEMATOCRIT 43.1 % (35.4-49); HEMOGLOBIN 14.6 GM/dL (11.7-16.9); MCH 27.3 pg (25.7-33.7); MCHC 33.8 g/dl (32.0-35.9); MEAN CELL VOLUME 80.8 fl (80-96); MEAN PLT VOLUME 8.4 fl (7.5-11.1); PLATELET COUNT 339 10^3/uL (134-434); RBC 5.33 M/mm3 (4.00-5.60); WHITE BLOOD COUNT 8.5 K/mm3 (4.0-10.0)
[2020-10-05 09:50] LABS: BLOOD UREA NITROGEN 4.2 mg/dL (7-18); CALCIUM 9.3 mg/dL (8.5-10.1); MAGNESIUM 1.8 mg/dL (1.8-2.4)
[2020-10-05 09:53] LABS: CREATININE 0.7 mg/dL (0.55-1.3); PHOSPHOROUS 3.1 mg/dL (2.5-4.9)
[2020-10-05 10:15] VITALS: TEMP 98.9
[2020-10-05] MEDS: FAMOTIDINE 20 MG/50 ML IVPB 20 MG/50 ML MG IVPB SCH (10:28)
[2020-10-05] MEDS: INSULIN (LEVEMIR) 100 UNITS/ML UNITS SQ SCH (10:29)
[2020-10-05] MEDS: HYDROCHLOROTHIAZIDE 25 MG TABLET (FP) PO SCH (10:29)
[2020-10-05] MEDS: LISINOPRIL 10 MG TABLET PO SCH (10:29)
[2020-10-05] MEDS: POLYETHYLENE GLYCOL (HEALTHYLAX) 3350 17 GM PACKET PO SCH (10:30)
[2020-10-05 14:26] VITALS: BP 143/82; PULSE 108
[2020-10-05 15:30] VITALS: BMI 45.6
== END 2020-10-05 17:18 | disposition home or self-care (01) | DRG 282 ==
LOC: JER 04:33 → JERBED 11:12 → J5S 22:58
PROVIDERS: ADMIT Internal Medicine; ATTEND Internal Medicine
DX: K85.90 Acute pancreatitis without necrosis or infection, unspecified (principal); I10 Essential (primary) hypertension; E66.01 Morbid (severe) obesity due to excess calories; Z68.42 Body mass index [BMI] 45.0-49.9, adult; K76.0 Fatty (change of) liver, not elsewhere classified; K59.00 Constipation, unspecified; E11.65 Type 2 diabetes mellitus with hyperglycemia
CPT/HCPCS: 36415; 74177-TC; 80048; 80053; 80061; 82010; 82803; 82962; 83036; 83690; 83735; 84100; 84443; 85025; 85027; 93005; 93010; 99285-25; C9803; J0131; Q9967; U0003; U0005

== ENCOUNTER 2020-10-07 00:41 | Inpatient (IN) | payer OTHER ==
[2020-10-07] MEDS ORDERED: ACETAMINOPHEN 500 MG TABLET (FP) PO ONE (01:09)
[2020-10-07] MEDS ORDERED: LACTATED RINGERS SOLUTION 1000 ML INFUS.BAG IV ONE (01:09)
[2020-10-07] MEDS ORDERED: ACETAMINOPHEN 325 MG TABLET (FP) ONE (01:20)
[2020-10-07] MEDS ORDERED: ACETAMINOPHEN 1000 MG/100 ML VIAL (NON FORMULARY) IVPB ONE (01:21)
[2020-10-07] MEDS ORDERED: ACETAMINOPHEN INJECTION 100 ML IVPB ONE (01:21)
[2020-10-07 01:38] LABS: BASO % 0.6 % (0-2.0); HEMATOCRIT 39.9 % (35.4-49); HEMOGLOBIN 13.3 GM/dL (11.7-16.9); LYMPH % 29.3 % (8-40); MCH 26.6 pg (25.7-33.7); MCHC 33.3 g/dl (32.0-35.9); MEAN CELL VOLUME 79.7 fl (80-96); MEAN PLT VOLUME 7.9 fl (7.5-11.1); MONO % 9.3 % (3.8-10.2); NEUT % 57.8 % (42.8-82.8); PLATELET COUNT 326 10^3/uL (134-434); RBC 5.01 M/mm3 (4.00-5.60); RDW 13.7 % (11.9-15.9); WHITE BLOOD COUNT 7.3 K/mm3 (4.0-10.0)
[2020-10-07 02:06] LABS: CALCIUM 9.2 mg/dL (8.5-10.1)
[2020-10-07 02:07] LABS: ALBUMIN 3.6 g/dl (3.4-5.0); BLOOD UREA NITROGEN 14.8 mg/dL (7-18)
[2020-10-07 02:12] LABS: BILIRUBIN,TOTAL 0.3 mg/dL (0.2-1); TOT PROT 7.2 g/dl (6.4-8.2)
[2020-10-07] MEDS ORDERED: morphine CARPU-JECT 2 MG/1 ML DISP.SYRIN IVPUSH ONE (03:10)
[2020-10-07] MEDS ORDERED: morphine SULFATE 4 MG/ML VIAL ONE (03:12)
[2020-10-07] MEDS: LACTATED RINGERS SOLUTION 1,000 ML/1,000 ML INFUS.BAG IV SCH ×2 (03:16→08:49)
[2020-10-07] MEDS ORDERED: LISINOPRIL 10 MG TABLET PO ONE (03:58)
[2020-10-07 04:04] LABS: TRIGLYCERIDES 176 mg/dL (0-150)
[2020-10-07] MEDS ORDERED: LISINOPRIL 5 MG TABLET ONE (04:12)
[2020-10-07] MEDS ORDERED: NICOTINE 7 MG/24 HOURS TOPICAL PATCH TD PRN (04:55)
[2020-10-07] MEDS ORDERED: ACETAMINOPHEN 325 MG TABLET (FP) PO PRN (05:07)
[2020-10-07] MEDS ORDERED: HYDROCHLOROTHIAZIDE 25 MG TABLET (FP) PO SCH ×2 (07:00→10:00)
[2020-10-07] MEDS ORDERED: INSULIN (NOVOLOG) ASPART 100 UNITS/ML 10ML VIAL ONE (08:23)
[2020-10-07 08:29] LABS: COCAINE, UR NEGATIVE (NEGATIVE); METHADONE, UR NEGATIVE (NEGATIVE); URINE BENZODIAZEPINES NEGATIVE (NEGATIVE)
[2020-10-07 08:30] LABS: PHENCYCLIDINE,URINE NEGATIVE (NEGATIVE); URINE AMPHETAMINES NEGATIVE (NEGATIVE); URINE BARBITURATES NEGATIVE (NEGATIVE)
[2020-10-07 08:32] LABS: URINE APPEARANCE CLEAR; URINE BILIRUBIN NEGATIVE (NEGATIVE); URINE COLOR YELLOW; URINE GLUCOSE (UA) >=1000 (NEGATIVE)
[2020-10-07 08:34] LABS: PH,URINE 5.5 (5.0-8.0); URINE KETONE 15 mg/dl (NEGATIVE); URINE LEUK ESTERASE NEGATIVE (NEGATIVE); URINE NITRITE NEGATIVE (NEGATIVE); URINE PROTEIN NEGATIVE (NEGATIVE)
[2020-10-07 08:35] LABS: EPI CELLS 0.7 /uL (0-25.1); HYALINE CASTS 0.12 /uL (0-3.1); URINE BACTERIA 36949.7 /uL (0-1359); URINE RBC 2.2 /uL (0-23.9); URINE WBC 18.7 /uL (0-25.8)
[2020-10-07 08:40] LABS: HEMATOCRIT 38.3 % (35.4-49); HEMOGLOBIN 12.8 GM/dL (11.7-16.9); MCH 26.8 pg (25.7-33.7); MCHC 33.3 g/dl (32.0-35.9); MEAN CELL VOLUME 80.5 fl (80-96); MEAN PLT VOLUME 8.3 fl (7.5-11.1); PLATELET COUNT 306 10^3/uL (134-434); RBC 4.76 M/mm3 (4.00-5.60); RDW 13.6 % (11.9-15.9); WHITE BLOOD COUNT 6.1 K/mm3 (4.0-10.0)
[2020-10-07 08:41] LABS: OPIATES, URI POSITIVE (NEGATIVE)
[2020-10-07] MEDS: MORPHINE SULFATE 2 MG/ML VIAL IVPUSH PRN ×2 (08:46→18:43)
[2020-10-07 09:02] LABS: ALBUMIN 3.5 g/dl (3.4-5.0); BLOOD UREA NITROGEN 12.4 mg/dL (7-18); MAGNESIUM 1.8 mg/dL (1.8-2.4)
[2020-10-07 09:05] VITALS: BMI 45.5
[2020-10-07 09:05] LABS: CREATININE 0.8 mg/dL (0.55-1.3); PHOSPHOROUS 3.8 mg/dL (2.5-4.9)
[2020-10-07 09:07] LABS: BILIRUBIN,TOTAL 0.3 mg/dL (0.2-1); TOT PROT 6.7 g/dl (6.4-8.2)
[2020-10-07] MEDS: INSULIN SLIDING SCALE (NOVOLOG) 1 VIAL SQ SCH ×3 (09:42→17:21)
[2020-10-07] MEDS ORDERED: ENOXAPARIN NA (PORCINE) 40 MG/0.4 ML DISP.SYRIN SQ SCH (10:00)
[2020-10-07] MEDS ORDERED: PANTOPRAZOLE SODIUM 40 MG VIAL IVPUSH SCH (10:00)
[2020-10-07 14:34] VITALS: BP 148/81; PULSE 96; TEMP 97.9
[2020-10-07] MEDS ORDERED: LACTATED RINGERS SOLUTION 1,000 ML/1,000 ML INFUS.BAG IV SCH (14:49)
[2020-10-07] MEDS ORDERED: POLYETHYLENE GLYCOL (HEALTHYLAX) 3350 17 GM PACKET PO SCH (22:00)
[2020-10-07] MEDS ORDERED: LISINOPRIL 10 MG TABLET PO SCH (22:00)
[2020-10-08 11:07] LABS: MICROALBUMIN/CREATININE RATIO <6 mg/g creat (0-29)
== END 2020-10-07 20:00 | disposition left against medical advice (07) | DRG 439 ==
LOC: JER 00:41 → JERBED 03:09 → J7W 06:20
PROVIDERS: ADMIT Internal Medicine; ATTEND Internal Medicine
DX: K85.90 Acute pancreatitis without necrosis or infection, unspecified (principal); Z68.42 Body mass index [BMI] 45.0-49.9, adult; E87.0 Hyperosmolality and hypernatremia; E11.65 Type 2 diabetes mellitus with hyperglycemia; E66.01 Morbid (severe) obesity due to excess calories; I10 Essential (primary) hypertension; K59.00 Constipation, unspecified; F17.210 Nicotine dependence, cigarettes, uncomplicated; F12.90 Cannabis use, unspecified, uncomplicated
CPT/HCPCS: 36415; 74177-TC; 76705-TC; 80053; 80307; 81003; 82043; 82570; 82962; 83690; 83735; 84100; 84478; 84484; 85025; 85027; 86140; 93005; 93010; 94010; 99285-25; C9803; J0131; U0003; U0005

== ENCOUNTER 2020-10-08 01:38 | Emergency (ER) | payer OTHER ==
[2020-10-08 02:06] VITALS: BP 130/81; PULSE 118; TEMP 98.3; BMI 45.5
[2020-10-08] MEDS ORDERED: SODIUM CHLORIDE 0.9% 500 ML INFUS.BAG IV ONE (03:32)
[2020-10-08 03:45] LABS: BASO % 0.4 % (0-2.0); EOS % 2.8 % (0-4.5); HEMOGLOBIN 12.6 GM/dL (11.7-16.9); LYMPH % 29.5 % (8-40); MCH 26.6 pg (25.7-33.7); MCHC 33.1 g/dl (32.0-35.9); MEAN CELL VOLUME 80.2 fl (80-96); MEAN PLT VOLUME 8.1 fl (7.5-11.1); MONO % 10.5 % (3.8-10.2); NEUT % 56.8 % (42.8-82.8); PLATELET COUNT 317 10^3/uL (134-434); RBC 4.73 M/mm3 (4.00-5.60); RDW 13.7 % (11.9-15.9); WHITE BLOOD COUNT 6.2 K/mm3 (4.0-10.0)
[2020-10-08] MEDS ORDERED: LACTATED RINGERS SOLUTION 1,000 ML/1,000 ML INFUS.BAG IV SCH (03:45)
[2020-10-08 03:49] LABS: EPI CELLS 12 /uL (0-25.1); HYALINE CASTS 3 /uL (0-3.1); PH,URINE 5.5 (5.0-8.0); URINE APPEARANCE CLEAR; URINE BACTERIA 1354 /uL (0-1359); URINE BILIRUBIN NEGATIVE (NEGATIVE); URINE COLOR YELLOW; URINE GLUCOSE (UA) 3+ (NEGATIVE); URINE KETONE 3+ (NEGATIVE); URINE LEUK ESTERASE TRACE (NEGATIVE); URINE NITRITE NEGATIVE (NEGATIVE); URINE PROTEIN TRACE (NEGATIVE); URINE RBC 8 /uL (0-23.9); URINE WBC 61 /uL (0-25.8)
[2020-10-08] MEDS ORDERED: KETOROLAC TROMETHAMINE 30 MG/1 ML VIAL ONE (03:54)
[2020-10-08] MEDS ORDERED: KETOROLAC TROMETHAMINE 30 MG/1 ML VIAL IVPUSH ONE (03:54)
[2020-10-08 04:09] LABS: INR 1.09 (0.83-1.09); PROTHROMBIN TIME (PATIENT) 13.4 SEC (9.7-13.0)
[2020-10-08 04:11] LABS: ACTIVATED PTT 27.8 SECONDS (25.2-36.5)
[2020-10-08 04:12] LABS: CHLORIDE 98 mmol/L (98-107); SODIUM 134 mmol/L (136-145)
[2020-10-08 04:14] LABS: CALCIUM 9.1 mg/dL (8.5-10.1)
[2020-10-08 04:15] LABS: ALBUMIN 3.6 g/dl (3.4-5.0); ANION GAP 9 MMOL/L (8-16); BLOOD UREA NITROGEN 8.1 mg/dL (7-18); CO2 27 mmol/L (21-32); GLUCOSE,RANDOM 245 mg/dL (74-106); LIPASE 1055 U/L (73-393); MAGNESIUM 1.7 mg/dL (1.8-2.4)
[2020-10-08 04:18] LABS: CREATININE 0.7 mg/dL (0.55-1.3); SGOT/AST 43 U/L (15-37); SGPT/ALT 48 U/L (13-61)
[2020-10-08 04:19] LABS: BILIRUBIN,TOTAL 0.3 mg/dL (0.2-1)
[2020-10-08 04:21] LABS: ALK PHOS 61 U/L (45-117); URINE AMPHETAMINES NEGATIVE (NEGATIVE); URINE BARBITURATES NEGATIVE (NEGATIVE); URINE BENZODIAZEPINES NEGATIVE (NEGATIVE)
[2020-10-08 04:22] LABS: METHADONE, UR NEGATIVE (NEGATIVE); PHENCYCLIDINE,URINE NEGATIVE (NEGATIVE)
[2020-10-08 04:27] LABS: COCAINE, UR NEGATIVE (NEGATIVE); OPIATES, URI POSITIVE (NEGATIVE)
== END 2020-10-08 06:29 | disposition home or self-care (01) ==
LOC: JER 01:38
PROC: 3E0333Z Introduction of Anti-inflammatory into Peripheral Vein, Percutaneous Approach (ICD-10-PCS; principal; 2020-10-08)
DX: R10.13 Epigastric pain (principal); K85.90 Acute pancreatitis without necrosis or infection, unspecified
CPT/HCPCS: 36415; 80053; 80307; 81003; 82550; 83605; 83690; 83735; 84484; 85025; 85610; 85730; 87086; 87186; 93005; 93010; 99284-25; C9803; U0003; U0005

== ENCOUNTER 2022-11-23 11:40 | Emergency (ER) | payer OTHER ==
[2022-11-23 12:04] VITALS: BP 130/91; PULSE 100; RESP 18; TEMP 98.2; BMI 38.9
[2022-11-23] MEDS ORDERED: KETOROLAC TROMETHAMINE 30 MG/1 ML VIAL IM ONE (12:46)
[2022-11-23] MEDS ORDERED: KETOROLAC TROMETHAMINE 30 MG/1 ML VIAL ONE (12:49)
[2022-11-23 14:49] LABS: BASO % 0.5 % (0-2.0); EOS % 0.3 % (0-4.5); HEMATOCRIT 45.8 % (35.4-49); HEMOGLOBIN 15.2 GM/dL (11.7-16.9); LYMPH % 25.3 % (8-40); MCH 26.8 pg (25.7-33.7); MCHC 33.2 g/dl (32.0-35.9); MEAN CELL VOLUME 80.6 fl (80-96); MEAN PLT VOLUME 8.1 fl (7.5-11.1); MONO % 8.1 % (3.8-10.2); NEUT % 65.8 % (42.8-82.8); PLATELET COUNT 362 10^3/uL (134-434); RBC 5.69 M/mm3 (4.00-5.60); RDW 13.9 % (11.9-15.9); WHITE BLOOD COUNT 11.7 K/mm3 (4.0-10.0)
[2022-11-23 15:10] LABS: POTASSIUM 4.2 mmol/L (3.5-5.1)
[2022-11-23 15:13] LABS: ALBUMIN 4.2 g/dl (3.4-5.0); BLOOD UREA NITROGEN 6.7 mg/dL (7-18)
[2022-11-23 15:16] LABS: CREATININE 0.9 mg/dL (0.55-1.3)
[2022-11-23 15:17] LABS: BILIRUBIN,TOTAL 0.7 mg/dL (0.2-1); TOT PROT 8.3 g/dl (6.4-8.2)
== END 2022-11-23 16:21 | disposition home or self-care (01) ==
LOC: JER 11:40 → JERFT 11:40
PROC: 3E0233Z Introduction of Anti-inflammatory into Muscle, Percutaneous Approach (ICD-10-PCS; principal; 2022-11-23)
DX: R22.0 Localized swelling, mass and lump, head (principal); L03.211 Cellulitis of face; L02.01 Cutaneous abscess of face
CPT/HCPCS: 36415; 70487-TC; 80053; 85025; 96372; 99285-25; Q9967